=== PATIENT | male | born 1975 | race Caucasian/White ===

== ENCOUNTER → 2016-03-07 | Outpatient (CLI) | payer BC ==
[~2016-03-07] MED LIST: CPRUNK PO; DIAZIDE PO; ERGO500037 PO; LEVO-14 PO; LRT5 PO; MONT1TAB3 PO; OMAL150S; OXYC-57 PO; POTASSIUM CITRATE PO; RANI150T3 PO
[2016-03-09 14:39] LABS: AFP TUMOR MARKER SERUM 3.1 NG/ML (<6.1)
== END | disposition home or self-care (01) ==
LOC: C.LAB 10:46
PROVIDERS: ATTEND Urology
DX: C62.90 Malignant neoplasm of unspecified testis, unspecified whether descended or undescended (principal)

== ENCOUNTER → 2016-04-03 | Outpatient (CLI) | payer BC ==
[2016-04-03 17:33] LABS: HEMATOCRIT 42.8 % (42-52); MEAN CELL VOLUME 83.3 fL (80-100); MEAN CORPUSCULAR HGB CONC 32.5 g/dl (32-36); MEAN PLATELET VOLUME 9.4 fL (7.4-10.4); PLATELET COUNT 409 K/uL (130-400); RED BLOOD COUNT 5.14 M/uL (4.7-6.1); WHITE BLOOD COUNT 6.64 K/uL (4.8-10.8)
[2016-04-03 17:38] LABS: URINE APPEARANCE CLEAR (CLEAR); URINE BILIRUBIN NEG (NEG); URINE COLOR DK YELLOW; URINE NITRITE NEG (NEG); URINE PH 7.5 (4.5-7.5); UROBILINOGEN NEG (NEG)
[2016-04-03 17:47] LABS: BLOOD UREA NITROGEN 15 mg/dl (7-18); BUN/CREATININE RATIO 13.6 (10-20); CALCIUM 9.3 mg/dl (8.5-10.1); CARBON DIOXIDE 25 mmol/L (21-32); CHLORIDE 102 mmol/L (98-107); GLUCOSE 151 mg/dl (70-99); PHOSPHORUS 2.2 mg/dl (2.5-4.9); SODIUM 138 mmol/L (136-145)
[2016-04-03 17:59] LABS: MANUAL MICROSCOPIC REQUIRED? NO; REVIEW REQ? NO; URINE PROTIEN/CREAT RATIO 0.1 (0-0.2)
== END | disposition home or self-care (01) ==
LOC: C.LAB1850 16:12
PROVIDERS: ATTEND Internal Medicine Nephrology
DX: E55.9 Vitamin D deficiency, unspecified (principal)

== ENCOUNTER → 2016-04-25 | Outpatient (CLI) | payer BC ==
[~2016-04-25] MED LIST changes: +OPTIRAY 320 IV PRN
--- NOTE | 2016-04-25 15:51 | DIAGNOSTIC IMAGING REPORT ---
CHEST 2 VIEWS ROUTINE CLINICAL HISTORY: C62.90 Testicular cancer COMPARISON STUDY: 12/09/2015 FINDINGS: The cardiac and mediastinal contours are normal. There is no evidence of focal pulmonary consolidation. There is no evidence of failure. No pleural effusions are visualized.[ IMPRESSION: No active disease in the chest. Electronically signed by: North Robert M.D. 04/25/2016 3:50 PM Dictated Date/Time: 04/25/2016 3:49 PM
--- NOTE | 2016-04-25 16:07 | DIAGNOSTIC IMAGING REPORT ---
CT ABD/PELVIS IV CONTRAST ONLY CLINICAL HISTORY: Testicular carcinoma COMPARISON STUDY: 12/30/2015 TECHNIQUE: Following the IV administration of 93 mL of Optiray-320, CT scan of the abdomen and pelvis was performed from the lung bases to the proximal femurs. Images are reviewed in the axial, sagittal, and coronal planes. IV contrast was administered without complication. CT DOSE: 299.29 mGy.cm FINDINGS: Lower chest: The heart is normal in size and configuration, without pericardial effusion. The lung bases and pleural spaces are clear. Liver: The contrast-enhanced liver is normal in size, contour, and attenuation. There is no intrahepatic biliary ductal dilatation. The hepatic veins and portal veins are patent. Gallbladder: Unremarkable. Spleen: Normal in size and attenuation. Pancreas: Unremarkable. Adrenal glands: Unremarkable. Kidneys: There are multiple bilateral nonobstructing renal calculi. There are bilateral renal cysts the largest of which is on the right measuring 13 mm. No solid renal masses are visualized. Bowel: There are postsurgical changes of a prior subtotal colectomy. There is bowel wall thickening involving the distal small bowel and ileal rectal anastomosis. This remain similar to the preceding study. There are no transition zones indicate bowel obstruction. Peritoneum: There is no intraperitoneal free air or abdominal ascites. Vasculature: The abdominal aorta is normal in course and caliber. Adenopathy: There is a central mesenteric lymph node within the pelvis, which remains the upper limits of normal in size. There is no pathologic adenopathy by size criteria Pelvic viscera: There is mild prominence the prostate. Skeletal structures: No destructive osseous lesions are seen. IMPRESSION: 1. No evidence of metastatic disease 2. No evidence of bowel obstruction. No evidence of free air 3. Bilateral nephrolithiasis 4. Subtotal colectomy. Persistent bowel wall thickening involving the distal ileum and ileorectal anastomosis. Electronically signed by: North Robert M.D. 04/25/2016 4:06 PM Dictated Date/Time: 04/25/2016 4:00 PM
[2016-04-28 17:37] LABS: AFP TUMOR MARKER SERUM 3.4 NG/ML (<6.1)
== END | disposition home or self-care (01) ==
LOC: C.CTS 15:36
PROVIDERS: ATTEND Urology
DX: C62.90 Malignant neoplasm of unspecified testis, unspecified whether descended or undescended (principal); N20.0 Calculus of kidney; Z98.0 Intestinal bypass and anastomosis status

== ENCOUNTER → 2016-07-05 | Outpatient (CLI) | payer BC ==
[~2016-07-05] MED LIST changes: -OPTIRAY 320 IV PRN; -OXYC-57 PO
[2016-07-07 19:36] LABS: AFP TUMOR MARKER SERUM 5.1 NG/ML (<6.1)
== END ==
LOC: C.LAB 09:37
PROVIDERS: ATTEND Urology
DX: C62.90 Malignant neoplasm of unspecified testis, unspecified whether descended or undescended (principal)

== ENCOUNTER → 2016-08-29 | Outpatient (CLI) | payer BC ==
[2016-08-31 15:35] LABS: AFP TUMOR MARKER SERUM 3.1 NG/ML (<6.1)
== END | disposition home or self-care (01) ==
LOC: C.LAB 10:30
PROVIDERS: ATTEND Urology
DX: C62.90 Malignant neoplasm of unspecified testis, unspecified whether descended or undescended (principal)

== ENCOUNTER → 2016-10-04 | Outpatient (CLI) | payer BC ==
[2016-10-04 17:19] LABS: HEMATOCRIT 43.9 % (42-52); MEAN CELL VOLUME 82.5 fL (80-100); MEAN CORPUSCULAR HEMOGLOBIN 25.9 pg (25-34); MEAN CORPUSCULAR HGB CONC 31.4 g/dl (32-36); MEAN PLATELET VOLUME 9.2 fL (7.4-10.4); PLATELET COUNT 364 K/uL (130-400); RED BLOOD COUNT 5.32 M/uL (4.7-6.1); WHITE BLOOD COUNT 7.73 K/uL (4.8-10.8)
[2016-10-04 17:40] LABS: URINE APPEARANCE CLEAR (CLEAR); URINE BILIRUBIN NEG (NEG); URINE COLOR YELLOW; URINE EPITHELIAL CELL AUTO 0-5 /lpf (0-5); URINE NITRITE NEG (NEG); URINE PH 6.5 (4.5-7.5); URINE SPECIFIC GRAVITY 1.022 (1.000-1.030); UROBILINOGEN NEG (NEG)
[2016-10-04 17:42] LABS: MANUAL MICROSCOPIC REQUIRED? NO; REVIEW REQ? NO
[2016-10-04 17:47] LABS: BLOOD UREA NITROGEN 16 mg/dl (7-18); BUN/CREATININE RATIO 14.5 (10-20); CALCIUM 9.2 mg/dl (8.5-10.1); CARBON DIOXIDE 32 mmol/L (21-32); CHLORIDE 101 mmol/L (98-107); GLUCOSE 110 mg/dl (70-99); PHOSPHORUS 2.3 mg/dl (2.5-4.9); POTASSIUM 3.4 mmol/L (3.5-5.1); SODIUM 138 mmol/L (136-145); URIC ACID 5.8 mg/dl (2.6-7.2); URINE PROTIEN/CREAT RATIO 0.1 (0-0.2); URINE TOTAL PROTEIN 18.5 mg/dl (0-11.9)
== END | disposition home or self-care (01) ==
LOC: C.LAB1850 16:31
PROVIDERS: ATTEND Internal Medicine Nephrology
DX: N20.0 Calculus of kidney (principal); Q61.5 Medullary cystic kidney; C62.90 Malignant neoplasm of unspecified testis, unspecified whether descended or undescended; E55.9 Vitamin D deficiency, unspecified; E87.6 Hypokalemia

== ENCOUNTER → 2016-11-12 | Outpatient (CLI) | payer BC ==
[~2016-11-12] MED LIST changes: +OPTIRAY 320 IV PRN
--- NOTE | 2016-11-12 14:34 | DIAGNOSTIC IMAGING REPORT ---
CHEST 2 VIEWS ROUTINE CLINICAL HISTORY: C62.90 Testicular [id number] testicular carcinoma COMPARISON STUDY: 04/25/2016 FINDINGS: The bones soft tissues and hemidiaphragms are normal. The cardiomediastinal silhouette is normal. The lungs are clear. The pulmonary vasculature is normal. IMPRESSION: Negative chest. The above report was generated using voice recognition software. It may contain grammatical, syntax or spelling errors. Electronically signed by: Carlos Arizmendi M.D. 11/12/2016 2:33 PM Dictated Date/Time: 11/12/2016 2:32 PM
--- NOTE | 2016-11-12 16:01 | DIAGNOSTIC IMAGING REPORT ---
ABD/PELVIS IV AND ORAL CONT CLINICAL HISTORY: 41 years-old Male presenting with testicular cancer. TECHNIQUE: Multidetector CT of the abdomen and pelvis was performed after the administration of oral and intravenous contrast. IV contrast: 94 mL of Optiray 320. A dose lowering technique was used consistent with the principles of ALARA (as low as reasonably achievable). COMPARISON: 04/25/2016. CT DOSE (mGy.cm): The estimated cumulative dose is 289.89 mGycm. FINDINGS: Strategic Planning Manager topogram: Unremarkable. Lung bases: Lung bases clear. Normal heart size. No pericardial or pleural effusion. Liver: Normal morphology. No liver lesion. Patent hepatic vasculature. Biliary: No intrahepatic or extrahepatic biliary ductal dilatation. Normal gallbladder. Pancreas: Normal. Spleen: Normal. Adrenal glands: Normal. Kidneys and ureters: Numerous nonobstructing renal calculi bilaterally, left greater than right. Well-circumscribed hypodensity in the posterior interpolar region of the right kidney has slightly increased in size and is slightly more dense than simple fluid. No hydronephrosis. Mild prominence of the ureters without evidence of an obstructing mass or calculus. Bladder: Normal. Pelvic organs: Prostate enlargement likely secondary to benign prostatic hyperplasia. Bowel: Postsurgical changes of colectomy with suggestion of ileoanal pouch procedure. No bowel obstruction. Mild wall thickening of the presumed pouch unchanged. Peritoneal cavity: No free fluid or intraperitoneal gas. Vasculature: Aorta and IVC patent and normal in caliber. Lymph nodes: Scattered subcentimeter as enteric lymph nodes most prominent in the superior pelvis (for example series 3 image 271), measuring up to 6 mm in the short axis, unchanged. Few additional subcentimeter retroperitoneal and portacaval lymph nodes, unchanged. No convincing evidence of enlarging or pathologically enlarged lymph nodes by CT size criteria. Abdominal wall: Postsurgical changes in the scrotum, only partially visualized. Musculoskeletal: Normal. IMPRESSION: 1. No evidence of metastatic disease in the abdomen or pelvis. 2. Prominent mesenteric lymph nodes unchanged from prior, which could be reactive. 3. Evidence of colectomy with presumed ileoanal pouch procedure. Persistent wall thickening of the presumed pouch could suggest chronic pouchitis. 4. Bilateral nephrolithiasis. Electronically signed by: Danny Ott M.D. 11/12/2016 3:59 PM Dictated Date/Time: 11/12/2016 3:52 PM
[2016-11-15 15:29] LABS: AFP TUMOR MARKER SERUM 3.5 NG/ML (<6.1)
== END | disposition home or self-care (01) ==
LOC: C.CTS 13:31
PROVIDERS: ATTEND Urology
DX: N20.0 Calculus of kidney (principal); N40.0 Benign prostatic hyperplasia without lower urinary tract symptoms; C62.90 Malignant neoplasm of unspecified testis, unspecified whether descended or undescended

== ENCOUNTER → 2017-02-14 | Outpatient (CLI) | payer BC ==
[~2017-02-14] MED LIST changes: -OPTIRAY 320 IV PRN
== END | disposition home or self-care (01) ==
LOC: C.LAB 15:02
PROVIDERS: ATTEND Urology
DX: C62.90 Malignant neoplasm of unspecified testis, unspecified whether descended or undescended (principal)

== ENCOUNTER → 2017-04-08 | Outpatient (CLI) | payer OTHER ==
[2017-04-08 18:14] LABS: HEMATOCRIT 45.4 % (42-52); HEMOGLOBIN 14.7 g/dL (14.0-18.0); MEAN CELL VOLUME 84.5 fL (80-100); MEAN CORPUSCULAR HEMOGLOBIN 27.4 pg (25-34); MEAN CORPUSCULAR HGB CONC 32.4 g/dl (32-36); MEAN PLATELET VOLUME 9.6 fL (7.4-10.4); PLATELET COUNT 330 K/uL (130-400); RED CELL DISTRIBUTION WIDTH CV 13.9 % (11.5-14.5); WHITE BLOOD COUNT 6.29 K/uL (4.8-10.8)
[2017-04-08 18:35] LABS: ALBUMIN 3.8 gm/dl (3.4-5.0); BLOOD UREA NITROGEN 20 mg/dl (7-18); CALCIUM 9.1 mg/dl (8.5-10.1); CARBON DIOXIDE 32 mmol/L (21-32); CREATININE 1.18 mg/dl (0.60-1.40); GLUCOSE 92 mg/dl (70-99); POTASSIUM 3.4 mmol/L (3.5-5.1); SODIUM 137 mmol/L (136-145); URIC ACID 4.9 mg/dl (2.6-7.2)
[2017-04-08 18:36] LABS: PHOSPHORUS 3.1 mg/dl (2.5-4.9)
== END | disposition home or self-care (01) ==
LOC: C.LAB1850 17:07
PROVIDERS: ATTEND Internal Medicine Nephrology
DX: N20.0 Calculus of kidney (principal); Q61.5 Medullary cystic kidney; E55.9 Vitamin D deficiency, unspecified; E87.6 Hypokalemia

== ENCOUNTER → 2017-10-14 | Outpatient (CLI) | payer OTHER ==
[2017-10-14 17:41] LABS: HEMATOCRIT 45.3 % (42-52); HEMOGLOBIN 14.3 g/dL (14.0-18.0); MEAN CELL VOLUME 84.2 fL (80-100); MEAN CORPUSCULAR HEMOGLOBIN 26.6 pg (25-34); MEAN CORPUSCULAR HGB CONC 31.6 g/dl (32-36); MEAN PLATELET VOLUME 10.3 fL (7.4-10.4); PLATELET COUNT 305 K/uL (130-400); RED CELL DISTRIBUTION WIDTH CV 13.9 % (11.5-14.5); RED CELL DISTRIBUTION WIDTH SD 42.5 fL (36.4-46.3); WHITE BLOOD COUNT 7.53 K/uL (4.8-10.8)
[2017-10-14 18:36] LABS: ALBUMIN 3.6 gm/dl (3.4-5.0); ALKALINE PHOSPHATASE 94 U/L (45-117); ALT/SGPT 22 U/L (12-78); AST/SGOT 15 U/L (15-37); BLOOD UREA NITROGEN 12 mg/dl (7-18); CALCIUM 9.1 mg/dl (8.5-10.1); CARBON DIOXIDE 30 mmol/L (21-32); CREATININE 1.23 mg/dl (0.60-1.40); GLUCOSE 95 mg/dl (70-99); POTASSIUM 3.8 mmol/L (3.5-5.1); SODIUM 136 mmol/L (136-145); TOTAL PROTEIN 8.4 gm/dl (6.4-8.2); URIC ACID 5.5 mg/dl (2.6-7.2)
== END | disposition home or self-care (01) ==
LOC: C.LAB1850 16:27
PROVIDERS: ATTEND Internal Medicine Nephrology
DX: N20.0 Calculus of kidney (principal); Q61.5 Medullary cystic kidney; E87.6 Hypokalemia; E55.9 Vitamin D deficiency, unspecified